=== PATIENT | female | born 1970 ===

== ENCOUNTER 2017-07-09 07:32 | Day surgery (SDC) | payer OTHER ==
[2017-07-04 08:21] VITALS: BMI 23.9
[2017-07-09] MEDS ORDERED: Sodium Chloride 0.9% 1,000 ML IV SCH (07:45)
[2017-07-09] MEDS ORDERED: Bupivacaine 0.5% Inj(30mL) IJ ONE (07:45)
[2017-07-09] MEDS ORDERED: Lidocaine 1% Inj (20ml) IJ ONE (07:45)
[2017-07-09] MEDS ORDERED: Clindamycin 600mg/50ml NS 600 MG/50 ML BAG IVPB ONE (07:51)
--- NOTE | 2017-07-09 07:52 | CP.PCM.PN ---
Subjective - Date & Time of Evaluation Date of Evaluation: 07/09/17 Time of Evaluation: 07:52 - Subjective Subjective: 47 y/o female seen at bedside in [facility] prior to right foot neuroma surgery. Pt says she has been having pain in her right foot between her 2nd and 3rd toes for several months. Pt says she has tried cortisone injections and inserts but they do not work. Pt states she is feeling well today. Pt confirms that she has not had anything to eat since after midnight. Pt says she had 5 sips of water at 4:45am today. Pt has no further questions and says she is ready for surgery. Pt denies F/C/N/V/CP/SOB. PMH: denies PSH:tubal ligation All: PCNs, sulfa drugs Social: denies EtOH, cigarettes, or illicit drug use Family: mother has diabetes; denies family history of cancer or heart disease Objective - Medications Medications: Current Medications Bupivacaine HCl (Marcaine 0.5%) 30 ml IJ ONCE ONE Stop: 07/09/17 07:46 Sodium Chloride (Sodium Chloride 0.9%) 1,000 mls @ 1,000 mls/hr IV .Q1H HONG Stop: 07/10/17 07:50 Lidocaine HCl (Lidocaine 1% (20ml)) 20 ml IJ ONCE ONE Stop: 07/09/17 07:46 - Constitutional Appears: Well, Non-toxic, No Acute Distress - Extremities Exam Additional comments: Right lower extremity focused examination: Vasc: DP/PT pulses 2/4. Temperature gradient warm to cool. No pedal edema. CFT < 3 sec to all digits. Pedal hair growth present Derm: No open lesions, no ecchymosis, no erythema, no clinical signs of infection Neuro: Protective sensation grossly intact. Ortho: Tenderness and paresthesia elicited upon palpation of 2nd interspace when pressure applied. - Neurological Exam Neurological Exam: Alert, Awake, Oriented x3 - Psychiatric Exam Psychiatric exam: Normal Affect, Normal Mood Assessment and Plan - Assessment and Plan (Free Text) Assessment: 47 y/o female in [facility] with right foot neuroma to OR this morning for excision of neuroma Plan: Pt was seen and examined in [facility] Pt NPO status was confirmed - pt drinking water at 4:45am discussed with anesthesia and OK'd for proceeding with surgery All Pre-op testing and clearance was in the chart Pt has exhausted all conservative treatment at this time and is opting for surgical intervention Pt was explained procedure and post-operative course All pt's questions were answered to satisfaction No guarantees were made Pt understands all risks, benefits and complications of procedure Pt will follow-up with Dr. Lynch in the office within one week
--- NOTE | 2017-07-09 07:53 | CP.SDSHP ---
Same Day Surgery H & P - History Proposed Procedure: right foot excision of neuroma Pre-Op Diagnosis: right foot neuroma - Previous Medical/Surgical History Pain: 4.Moderate Pain Previous Surgical History: tubal ligation - Allergies Allergies: Allergies Penicillins Allergy (Verified 07/04/17 08:22) RASH Sulfa (Sulfonamide Antibiotics) Allergy (Verified 07/04/17 08:22) RASH - Physical Exam General Appearance: well nourished, NAD Mental Status: Alert & Oriented x3 Heart: WNL Lungs: WNL - {Optional Preform as Required} Integument: WNL Ortho: Other (tenderness when pressure applied to right foot 2nd interspace) - Impression Impression: Pt was seen and examined in [facility]. Pt NPO status was confirmed. All Pre-op testing and clearance was in the chart. Pt has exhausted all conservative treatment at this time and is opting for surgical intervention. Pt was explained procedure and post-operative course. All pt's questions were answered to satisfaction. No guarantees were made. Pt understands all risks, benefits and complications of procedure. Pt will follow-up with Dr. Lynch in office within 1 week - Date & Time Date: 07/09/17 Time: 07:50 Short Stay Discharge - Short Stay Discharge Admitting Diagnosis/Reason for Visit: G57.61/M79.671 Disposition: HOME/ ROUTINE Referrals: Carlee Lynch DPM [Primary Care Provider] - Instructions: RICE Therapy (GEN) Additional Instructions (Diet, Activity): -Patient in good/stable condition for discharge home -Pt to resume medications per medical reconciliation -Resume regular diet. -Please keep dressing clean, dry, & intact to surgical site, use plastic bag over bandage for showering -Wear CAM boot at all times when ambulating -Call clinic if you see signs of infection (redness, swelling, malodor) -Please make an appointment to see Dr. Lynch in office/clinic within 1 week for post-op check Progress Note/Discharge Note with Instructions: - Patient evaluated bedside in recovery s/p surgical procedure. - After surgical procedure patient in NAD - (+) Void, (+) Appetite - Capillary refill time <3s and NVSI intact. - Patient denies complaints at this time - Post operative instructions and plan of care explained to patient at length. - Pt. acknowledges understanding. - Patient stable for DC per podiatric surgery
[2017-07-09] MEDS ORDERED: Propofol 10 mg/ml Inj (20 ML) ONE ×2 (07:55→09:06)
[2017-07-09] MEDS ORDERED: Midazolam 2 MG/2 ML VIAL ONE (07:56)
[2017-07-09] MEDS ORDERED: Lidocaine 2% MPF (5 ml) Inj ONE (07:56)
[2017-07-09] MEDS ORDERED: ePHEDrine 50 mg/ml Inj ONE (07:56)
[2017-07-09] MEDS ORDERED: Bupivacaine 0.5% Inj(30mL) ONE (08:13)
[2017-07-09] MEDS ORDERED: ceFAZolin IV 1 gm in Dextrose 0 GM/0 ML BAG IVPB ONE (08:13)
[2017-07-09] MEDS ORDERED: Lidocaine 1% Inj (20ml) ONE (08:13)
[2017-07-09] MEDS ORDERED: Sodium Chloride 0.9% 250 ML IV ONE (09:04)
[2017-07-09] MEDS ORDERED: Lactated Ringer's 1,000 ML IV ONE (09:04)
[2017-07-09] MEDS: Dexamethasone 4 mg/1 ml ONE ×2 (09:13→09:29)
[2017-07-09] MEDS ORDERED: HYDROmorphone 0.5 mg/0.5 ml ISec IVP PRN (09:40)
--- NOTE | 2017-07-09 09:41 | PCM.SURG1 ---
Surgeon's Initial Post Op Note - Surgeon's Notes Surgeon: Dr. Carlee Lynch Nuclear Engineering Technician: Dr. Andreia Sams PGY-2, Dr. Juan Ramon Ortiz PGY-1 Type of Anesthesia: IV Sedation, Local Anesthesia Administered By: Dr. Gomez Pre-Operative Diagnosis: right foot neuroma Operative Findings: see operative report. I: 10cc 1:1 mix 1% Lidocaine plain and 0.5% Marcaine plain. 10cc 0.5% Marcaine plain and 1cc of 4mg/mL Dexamethasone post-op. M: 3-0 Vicryl, 4-0 Vicryl, 4-0 Nylon Post-Operative Diagnosis: same Operation Performed: right foot excision of neuroma Specimen/Specimens Removed: neuroma (soft tissue) Estimated Blood Loss: EBL {In ML}: 2 Blood Products Given: N/A Drains Used: No Drains Post-Op Condition: Good Date of Surgery/Procedure: 07/09/17 Time of Surgery/Procedure: 09:42
[2017-07-09] MEDS ORDERED: Lactated Ringer's 1,000 ML IV SCH (09:45)
[2017-07-09 11:32] VITALS: BP 130/70; PULSE 78; RESP 20; TEMP 98.5; O2SAT 98
[2017-07-09] MEDS ORDERED: Oxycodone/Acetaminophen 5/325 mg Tab PO STA ×2 (11:42→11:57)
[2017-07-09] MEDS ORDERED: Oxycodone/Acetaminophen 5/325 mg Tab PO ONE (12:02)
--- NOTE | 2017-07-09 14:35 | OP ---
PROCEDURE DATE: 07/09/2017 PREOPERATIVE DIAGNOSIS: Right foot painful neuroma. POSTOPERATIVE DIAGNOSIS: Right foot painful neuroma. NAME OF PROCEDURE: Right foot excision of painful neuroma. SURGEON: Carlee Lynch DPM. FIELD CROP FARMER: Andreia Sams DPM, PGY-2; Dr. Juan Ramon Ortiz DPM, PGY-1. TYPE OF ANESTHESIA: IV sedation with local. ANESTHESIA ADMINISTERED BY: Margy Gomez MD. INDICATIONS: The patient is a 47-year-old female with the above-mentioned diagnosis. The patient has exhausted multiple points of conservative treatment at this time and now requires surgical intervention. The patient signed the consent after careful explanation of risks, benefits, complications and alternatives for surgical procedure. No guarantees were given or implied. N.p.o. status was confirmed prior to bringing the patient into the operating room. PREPARATION: The patient was brought into the operating room and placed on the operating room table in a supine position. Time-out was performed for identification of the correct patient and procedure. After IV sedation was achieved, a local injection of 10 mL of 1:1 mixture of 1% lidocaine and 0.5% Marcaine plain was given in a local block-type fashion to the right foot. Once local anesthesia was achieved, the right foot was then prepped and draped in normal sterile manner. The tourniquet was inflated to 250 mmHg and the procedure began. DESCRIPTION OF PROCEDURE: Attention was directed to the right foot dorsal aspect of the second and third interspace where a linear longitudinal incision was made over just lateral to the second interspace distally overlying the painful area. The incision was deepened through subcutaneous tissue with care being taken to identify and retract all vital neurovascular structures. All bleeders were cauterized and ligated as necessary. At this time, dissection was carried down through the second interspace dorsally using blunt dissection so the intermetatarsal ligament was transected to decompress the interdigital nerve. The nerve was then visualized in the operative field and was excised and passed from the operative field and sent to pathology. Next, the dissection was carried down to the third interspace dorsally with blunt dissection to the intermetatarsal ligament, which was visualized and decompressed. The nerve was then visualized in the operative field and was excised and passed from the operative field and sent to pathology. The wound was then flushed with copious amounts of sterile normal saline. The subcutaneous tissues were reapproximated and coapted using 3-0 and 4-0 Vicryl and the skin was reapproximated and coapted using 4-0 nylon. Postoperative bandages included Xeroform, then a postoperative injection of 10 mL of 0.5% Marcaine plain and 1 mL of dexamethasone 4 mg/kg was given in a local block-type fashion around the surgical incision site and then postoperative bandages included Xeroform, 4x4 gauze, Webril and ROWENA were applied to the right foot. POSTOPERATIVE CONDITION: The patient tolerated the anesthesia and the procedure well and was escorted to the recovery room with vital signs stable and neurovascular status intact to the right foot. The patient will follow up with Dr. Lynch on an outpatient basis. Andreia Sams DPM Carlee Lynch DPM.
== END 2017-07-09 12:45 | disposition home or self-care (01) ==
LOC: H.OPSURG 07:32
PROVIDERS: ATTEND Student in an Organized Health Care Education/Training Program
DX: G57.61 Lesion of plantar nerve, right lower limb (principal); M79.671 Pain in right foot; Z88.0 Allergy status to penicillin; Z83.3 Family history of diabetes mellitus; Z88.2 Allergy status to sulfonamides
CPT/HCPCS: 28080; 88305; 97116; 97161; G8978; G8979; G8980; J1100; J2250; J2704; J3010; J7030; J7040; J7120